=== PATIENT | female | born 1955 ===

== ENCOUNTER 2023-03-10 12:56 | Emergency (ER) | payer MEDICARE ==
[2023-03-10] MEDS ORDERED: fentaNYL 50 MCG/ML SDV IVPUSH ONE (13:02)
== END 2023-03-10 15:35 | disposition home or self-care (01) ==
LOC: JP.ED 12:56
DX: S52.001A Unspecified fracture of upper end of right ulna, initial encounter for closed fracture (principal); S42.202A Unspecified fracture of upper end of left humerus, initial encounter for closed fracture; S80.01XA Contusion of right knee, initial encounter; S00.31XA Abrasion of nose, initial encounter; Z88.5 Allergy status to narcotic agent; Z88.8 Allergy status to other drugs, medicaments and biological substances; Z91.048 Other nonmedicinal substance allergy status; W01.0XXA Fall on same level from slipping, tripping and stumbling without subsequent striking against object, initial encounter
CPT/HCPCS: 29105; 73020; 73070; 73562; 96374; 99283; J3010; 29125